=== PATIENT | female | born 1950 | race Caucasian/White ===

== ENCOUNTER → 2024-05-15 06:50 | Outpatient (REF) | payer MEDICARE, OTHER, SELFPAY ==
[2024-05-15 09:34] LABS: % Basophils 0.1 % (0-2); % Eosinophils 0.1 % (0-6); % Immature Granulocytes 0.3 % (0-0.5); % Neutrophils 53.5 % (42.2-75.2); Absolute Lymphocytes 2.6 10^3/uL (1.2-3.4); Absolute Monocytes 0.6 10^3/uL (0.1-0.6); Absolute Neutrophils 3.7 10^3/uL (1.4-6.5); Hematocrit 40.1 % (37.0-47.0); Hemoglobin 13.1 g/dL (12.0-16.0); Mean Corp Hgb Conc. 32.7 g/dL (33.0-37.0); Mean Corpuscular Hgb 30.2 pg (27.0-31.0); Mean Corpuscular Volume 92.4 fL (81.0-99.0); Mean Platelet Volume 9.9 fL (7.4-10.4); Nucleated Red Blood Cells % 0 %; Platelet Count 287 10^3/uL (130-400); Red Blood Cell Count 4.34 10^6/uL (4.20-5.40); Red Cell Dist. Width 13.1 % (11.5-14.5); White Blood Cell Count 6.9 10^3/uL (4.8-10.8)
[2024-05-15 10:31] LABS: TSH Reflex To Free T4 2.49 uIU/ml (0.47-4.68)
[2024-05-15 11:02] LABS: ALT (SGPT) 19 U/L (0-35); AST (SGOT) 29 U/L (14-36); Albumin 4.2 g/dl (3.5-5.0); Alkaline Phosphatase 73 U/L (38-126); Blood Urea Nitrogen 17 mg/dl (7-17); Calcium 9.2 mg/dl (8.4-10.2); Carbon Dioxide 25 mmol/L (22-30); Chloride 106 mmol/L (98-107); Glucose 97 mg/dl (70-99); HDL Cholesterol 88 mg/dl; LDL Cholesterol, Calculated 155 mg/dl; Potassium 4.3 mmol/L (3.5-5.1); Sodium 139 mmol/L (135-145); Total Bilirubin 0.3 mg/dl (0.2-1.3); Total Cholesterol 255 mg/dl (50-199); Total Protein 7.4 g/dl (6.3-8.2); Triglyceride 64 mg/dl (10-149); Very Low Density Lipoprotein 12 mg/dl (0-30); eGFR > 60.00
[2024-05-15 11:07] LABS: Vitamin B12 < 159 pg/ml (239-931)
== END ==
LOC: HWLAB 06:50
PROVIDERS: ATTENDING PHYSICIAN Nurse Practitioner Adult Health
DX: E53.8 Deficiency of other specified B group vitamins (principal); Z00.00 Encounter for general adult medical examination without abnormal findings; E66.3 Overweight
CPT/HCPCS: 36415; 80053; 80061; 82607; 82746; 84443; 85025

== ENCOUNTER → 2024-08-21 07:41 | Outpatient (REF) | payer MEDICARE, OTHER, SELFPAY | LOC: HWWDC 07:41 | PROVIDERS: ATTENDING PHYSICIAN Nurse Practitioner Adult Health | DX: Z12.31 Encounter for screening mammogram for malignant neoplasm of breast (principal); R01.1 Cardiac murmur, unspecified; M85.80 Other specified disorders of bone density and structure, unspecified site; M81.0 Age-related osteoporosis without current pathological fracture | CPT/HCPCS: 77063; 77067; 93306 ==

== ENCOUNTER → 2025-03-10 13:29 | Outpatient (REF) | payer MEDICARE, OTHER, SELFPAY ==
[2025-03-10 16:28] LABS: Vitamin D, 25-OH*** 42.5 ng/mL (30-80)
[2025-03-10 17:01] LABS: Vitamin B12 733 pg/ml (239-931)
== END ==
LOC: HWLAB 13:29
PROVIDERS: ATTENDING PHYSICIAN Nurse Practitioner Adult Health
DX: E53.8 Deficiency of other specified B group vitamins (principal); Z79.899 Other long term (current) drug therapy; M85.88 Other specified disorders of bone density and structure, other site
CPT/HCPCS: 36415; 82306; 82607

== ENCOUNTER → 2025-03-22 14:47 | Outpatient (REF) | payer MEDICARE, OTHER, SELFPAY | LOC: RAD 14:47 | PROVIDERS: ATTENDING PHYSICIAN Registered Nurse | DX: S69.92XA Unspecified injury of left wrist, hand and finger(s), initial encounter (principal) | CPT/HCPCS: 73110; 73130 ==